=== PATIENT | male | born 1990 | race African-American/Black ===

== ENCOUNTER → 2025-07-20 00:35 | Emergency (ER) | payer MEDICAID, OTHER ==
[~2025-07-20] VITALS: Ht 170.2 cm; Wt 77.2 kg
[~2025-07-20 00:35] MED LIST: EPINEPHrine HCL 1 MG/10 ML SYRG IV ONE
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
== END ==
LOC: ER 00:35 → EDBD 00:35
DX: S06.9X9A Unspecified intracranial injury with loss of consciousness of unspecified duration, initial encounter (principal); I46.9 Cardiac arrest, cause unspecified; J96.01 Acute respiratory failure with hypoxia; F17.200 Nicotine dependence, unspecified, uncomplicated; Z79.899 Other long term (current) drug therapy; V89.2XXA Person injured in unspecified motor-vehicle accident, traffic, initial encounter; Y93.89 Activity, other specified; Y92.89 Other specified places as the place of occurrence of the external cause; Y99.8 Other external cause status
CPT/HCPCS: 82947; 92950; 99285; J0169